=== PATIENT | female | born 1960 | race Caucasian/White ===

== ENCOUNTER 2020-10-16 09:03 | Emergency (ER) | payer OTHER ==
[2020-10-16 09:10] VITALS: BP 148/87
--- NOTE | 2020-10-16 09:27 | ED Physician Documentation ---
PD HPI LOWER EXT INJURY - Stated complaint Stated Complaint: LEFT ANKLE INJURY - Chief complaint Chief Complaint: Trauma Ext - History obtained from History obtained from: Patient (She had an inversion injury of the left ankle last night. Pain is mild. She is able to walk and bear weight. No other injuries.) Review of Systems Constitutional: reports: Reviewed and negative Eyes: reports: Reviewed and negative Ears: reports: Reviewed and negative Nose: reports: Reviewed and negative Throat: reports: Reviewed and negative PD PAST MEDICAL HISTORY - Past Medical History Past Medical History: Yes Musculoskeletal: Rheumatoid arthritis - Present Medications Home Medications: Ambulatory Orders Medication Instructions Recorded Confirmed Adalimumab [Humira Pen] 10/16/20 Famotidine [Pepcid] 20 mg PO DAILY 10/16/20 10/16/20 Knee Scooter 1 unit TD ONCE #1 10/16/20 Levothyroxine Sodium 137 mcg PO DAILY 10/16/20 10/16/20 [Levothyroxine] metHOTREXate sodium [Trexall] 40 mg PO OAW 10/16/20 10/16/20 - Allergies Allergies/Adverse Reactions: Allergies Allergy/AdvReac Type Severity Reaction Status Date / Time No Known Drug Allergies Allergy Verified 10/16/20 09:06 - Social History Does the pt smoke?: No PD ED PE NORMAL - Vitals Vital signs reviewed: Yes - General General: Alert and oriented X 3, No acute distress - Back Back: No CVA TTP, No spinal TTP - Derm Derm: Normal color, Warm and dry - Extremities Extremities: Other (Tender over the lateral malleolus with some swelling there. No medial malleolar or talar dome tenderness. No tenderness of the foot.) - Neuro Neuro: Alert and oriented X 3, Normal speech Results - Vitals Vitals: Vital Signs - 24 hr 10/16/20 09:08 Temperature 36.7 C Heart Rate 73 Respiratory 19 Rate Blood Pressure 148/87 H O2 Saturation 100 Oxygen O2 Source Room air - Rads (name of study) L ankle 3v Radiology: EMP read contemporaneously (nondiscplaced frx of fibular tip) Procedures - Splint (location) LLE Splint applied by: Tech Type of splint: Fiberglass, Short leg, Posterior Other: Patient tolerated well, No complications, Neurovascular intact, Crutches provided PD MEDICAL DECISION MAKING - ED course ED course: [place]. 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 They wanted a CBC, CMP, CRP. Departure - Departure Disposition: 01 Home, Self Care Clinical Impression: Closed fracture of left distal fibula Qualifiers: Encounter type: initial encounter Fracture morphology: other fracture Qualified Code(s): S82.832A - Other fracture of upper and lower end of left fibula, initial encounter for closed fracture Rheumatoid arthritis Qualifiers: Rheumatoid arthritis location: unspecified site Rheumatoid factor presence: unspecified presence Qualified Code(s): M06.9 - Rheumatoid arthritis, unspecified Condition: Stable Record reviewed to determine appropriate education?: Yes Instructions: ED Fx Lower Ext Follow-Up: [facility] [Provider Group] - Within 1 week Prescriptions: Knee Scooter 1 unit TD ONCE #1 Comments: The fracture is pretty minor, but I recommend that she not walk or bear weight on it until you follow-up with the orthopedist, call today for an appointment. Keep it elevated, Tylenol or ibuprofen as needed for pain. You have blood tests (CBC, CMP, CRP) pending. For results go to the hospital website at [email or web address], click on the my [facility] tab and sign up for the patient portal.
--- NOTE | 2020-10-16 09:37 | XRAY Report ---
PROCEDURE: Ankle 3 View LT INDICATIONS: Trauma TECHNIQUE: 3 views of the ankle were acquired. COMPARISON: None FINDINGS: Bones: Nondisplaced linear horizontal fracture of the tip of the distal fibula. No other fractures or dislocations. Ankle mortise is normally aligned. No suspicious bony lesions. Soft tissues: No tibiotalar joint effusion. Achilles tendon appears normal. Lateral soft tissue sw elling. IMPRESSION: Nondisplaced horizontal tip of lateral malleolar fracture. Reviewed by: Phillip Carvajal MD on 10/16/2020 9:35 AM [facility] Approved by: Phillip Carvajal MD on 10/16/2020 9:35 AM [facility] Station ID: [id number]
[2020-10-16 09:55] LABS: BASOPHILS % (AUTO) 0.7 %; EOSINOPHILS # (AUTO) 0.1 10^3/uL (0.0-0.7); EOSINOPHILS % (AUTO) 1.8 %; LYMPHOCYTES # (AUTO) 1.2 10^3/uL (1.5-3.5); LYMPHOCYTES % (AUTO) 22.4 %; MEAN CORPUSCULAR HEMOGLOBIN 31.7 pg (27.0-31.0); MEAN CORPUSCULAR HGB CONC 34.1 g/dL (32.0-36.0); MEAN PLATELET VOLUME 9.4 fL (7.9-10.8); MONOCYTES # (AUTO) 0.5 10^3/uL (0.0-1.0); MONOCYTES % (AUTO) 8.7 %; NEUTROPHILS # (AUTO) 3.6 10^3/uL (1.5-6.6); NEUTROPHILS % (AUTO) 66.2 %; PLT - PLATELET COUNT 183 10^3/uL (130-450); RED BLOOD COUNT 4.73 10^6/uL (4.20-5.40); RED CELL DISTRIBUTION WIDTH 12.4 % (12.0-15.0); WHITE BLOOD COUNT 5.5 x10^3/uL (4.8-10.8)
[2020-10-16 10:10] LABS: ALBUMIN 4.3 g/dL (3.2-5.5); ALBUMIN/GLOBULIN RATIO 1.5 (1.0-2.2); ALKALINE PHOSPHATASE 55 IU/L (42-121); ALT ALANINE AMINOTRANSFERASE 61 IU/L (10-60); AST ASPARTATE AMINOTRANSFERASE 42 IU/L (10-42); BILIRUBIN,TOTAL 1.1 mg/dL (0.2-1.0); BUN - BLOOD UREA NITROGEN 15 mg/dL (6-20); CALCIUM 9.3 mg/dL (8.5-10.3); CARBON DIOXIDE - CO2 25 mmol/L (21-32); CHLORIDE 101 mmol/L (101-111); CREATININE 0.9 mg/dL (0.4-1.0); GLUCOSE 85 mg/dL (70-100); TOTAL PROTEIN 7.2 g/dL (6.7-8.2)
[2020-10-16 10:17] LABS: CRP - C-REACTIVE PROTEIN < 1.0 mg/dL (0-1.0)
== END 2020-10-16 09:55 | disposition home or self-care (01) ==
LOC: ED 09:03
DX: S82.832A Other fracture of upper and lower end of left fibula, initial encounter for closed fracture (principal); X50.1XXA Overexertion from prolonged static or awkward postures, initial encounter; Y93.01 Activity, walking, marching and hiking; M06.9 Rheumatoid arthritis, unspecified
CPT/HCPCS: 29515; 36415; 80053; 85025; 86140; 99283

== ENCOUNTER 2020-11-28 07:32 | Outpatient (CLI) | payer OTHER ==
--- NOTE | 2020-11-28 16:53 | XRAY Report ---
PROCEDURE: Ankle 3 View LT INDICATIONS: LEFT LATERAL MALLEOLUS Fx TECHNIQUE: 3 weight bearing views of the ankle were acquired. COMPARISON: 10/16/2020 FINDINGS: Bones: Redemonstration of transverse distal lateral malleolus fracture. Improved overlying soft tiss ue swelling. Ankle mortise is normally aligned. No suspicious bony lesions. Small plantar calcaneal and retrocalcaneal enthesophytes as before. Soft tissues: No tibiotalar joint effusion. Achilles tendon appears normal. IMPRESSION: 1. Stable alignment of transverse distal left lateral malleolus fracture with improved overlying soft tissue swelling. 2. Small plantar calcaneal and retrocalcaneal enthesophytes. Reviewed by: Domingo Horner MD on 11/28/2020 4:52 PM PDT Approved by: Domingo Horner MD on 11/28/2020 4:52 PM PDT Station ID: [id number]
== END 2020-11-28 23:59 | disposition home or self-care (01) ==
LOC: DI.N 07:32
PROVIDERS: ATTEND Orthopaedic Surgery
DX: S82.62XD Displaced fracture of lateral malleolus of left fibula, subsequent encounter for closed fracture with routine healing (principal); M77.32 Calcaneal spur, left foot; M77.52 Other enthesopathy of left foot and ankle

== ENCOUNTER 2022-01-20 16:35 | Emergency (ER) | payer OTHER ==
--- NOTE | 2022-01-20 17:17 | ED Physician Documentation ---
History of Present Illness - Stated complaint Stated Complaint: EYES IRRITATED - Chief complaint Chief Complaint: Heent - Additonal information Additional information: 61-year-old female presents emergency department for evaluation of left eye irritation. She was in her garden/patio picking weeds and she did pick some You for via plant. She did not think much of it but thinks that she may have scratched or rubbed her eye. [place] she began to have a burning sensation. She copiously irrigated her eye with water and feels that the burning sensation is better but given the risk factors for conjunctival damage with euphoria she presents to the emergency department. Review of Systems Constitutional: reports: Reviewed and negative Eyes: reports: Discharge, Irritation Ears: reports: Reviewed and negative Nose: reports: Reviewed and negative Throat: reports: Reviewed and negative PD PAST MEDICAL HISTORY - Past Medical History Past Medical History: Yes Cardiovascular: None Respiratory: None Neuro: None Endocrine/Autoimmune: HyPOthyroidism GI: GERD GRAIN BUYER: None : None HEENT: None Psych: None Musculoskeletal: Rheumatoid arthritis Derm: None - Past Surgical History Past Surgical History: No - Present Medications Home Medications: Ambulatory Orders Medication Instructions Recorded Confirmed Adalimumab [Humira Pen] 40 mg SQ OAW 10/16/20 01/20/22 Famotidine [Pepcid] 20 mg PO BID 10/16/20 01/20/22 Levothyroxine Sodium 137 mcg PO DAILY 10/16/20 01/20/22 [Levothyroxine] metHOTREXate sodium [Trexall] 40 mg PO OAW 10/16/20 01/20/22 Liothyronine [Cytomel] 5 mcg PO ONCE 01/20/22 01/20/22 Tobramycin/Dexamethasone [Tobradex 5 ml OP Q1HR #5 ml 01/20/22 Eye Drops] - Allergies Allergies/Adverse Reactions: Allergies Allergy/AdvReac Type Severity Reaction Status Date / Time No Known Drug Allergies Allergy Verified 01/20/22 16:40 - Social History Does the pt smoke?: No Smoking Status: Never smoker Does the pt drink ETOH?: No Does the pt have substance abuse?: No - Immunizations Immunizations are current?: Yes - POLST Patient has POLST: No PD ED PE EXPANDED - Eyes Eyes: No: Corneal abrasion, Corneal ulcer, Fluorescein uptake (Left eye with negative fluorescein uptake. Clear chambers. No obvious abrasion or ulceration. Extraocular movements intact. Globe is soft. No vision changes) Results - Vitals Vitals: Vital Signs - 24 hr 01/20/22 16:40 Temperature 36.7 C Heart Rate 66 Respiratory 16 Rate Blood Pressure 163/86 H O2 Saturation 98 Oxygen O2 Source Room air PD MEDICAL DECISION MAKING - ED course Complexity details: reviewed results, re-evaluated patient, d/w patient, d/w information services consultant (Dr. Watkins) ED course: 61-year-old female presents emergency department for evaluation of left eye conjunctival irritation and burning sensation. She had picked some you for be a plant in her garden and the sap accidentally came in contact with her eye when she touched her face. She did irrigate the eye at home with improved results but given the concern for sap keratoconjunctivitis she did come to the ER. Here in the emergency department she had preserved vision. Her fluorescein stain was negative. We did irrigate her eye with a liter of saline. On repeat evaluation the pH of the eye was 7.2. I briefly discussed this case with mold polisher Dr. Watkins on-call for Dr. Vines. She would recommend TobraDex eyedrops every hour in the left eye while awake. She should follow-up closely with an mold polisher in the next 24 to 48 hours. Otherwise emergent return precautions were discussed to the emergency department Departure - Departure Clinical Impression: Left eye injury Qualifiers: Encounter type: initial encounter Qualified Code(s): S05.92XA - Unspecified injury of left eye and orbit, initial encounter Follow-Up: Montrell Vines MD [Provider Admit Priv/Credential] - Prescriptions: Tobramycin/Dexamethasone [Tobradex Eye Drops] 5 ml OP Q1HR #5 ml Comments: aMrisa you were seen tonight in the emergency department after your left eye came into contact with euphorbia plant/SAP. This can cause a condition called keratitis in the eye which can cause vision changes. Your vision acuity is normal here. We did irrigate your eye with 1 L of saline. On recheck your pH is normal. I briefly discussed this case with Dr. Watkins and mold polisher that works closely with Dr. Vines. She recommends that you place 1 drop of the TobraDex eyedrops in your left eye every hour while awake. I do recommend that you wake up once or twice at night to also do this. You are to continue placing the TobraDex drops in your eye until you are seen by an mold polisher. I have given you the name and phone number of Dr. Montrell Vines's office. You should be seen by an mold polisher in the next 48 hours. If at any point you have worsening symptoms, loss of vision worsening pain you are to return immediately to the ER. TobraDex eyedrops have been sent to the [facility] in [place] for you to fill tomorrow. You are being given a small amount of the solution tonight to use while at home
[2022-01-20] MEDS ORDERED: TOBRAM/DEXAMETH OPHTH DROPS 2.5 ML LEFTEYE ONE (18:00)
[2022-01-20 18:32] VITALS: BP 158/79
== END 2022-01-20 18:33 | disposition home or self-care (01) ==
LOC: ED 16:35
DX: S05.92XA Unspecified injury of left eye and orbit, initial encounter (principal); X58.XXXA Exposure to other specified factors, initial encounter; T75.89XA Other specified effects of external causes, initial encounter; Y93.H2 Activity, gardening and landscaping; Y92.007 Garden or yard of unspecified non-institutional (private) residence as the place of occurrence of the external cause
CPT/HCPCS: 99281; 99282; A9270